=== PATIENT | male | born 1990 | race Caucasian/White ===

== ENCOUNTER 2022-02-25 17:10 | Emergency (ER) | payer OTHER ==
[~2022-02-25] VITALS: Ht 170.2 cm; Wt 84.0 kg
[2022-02-25] MEDS ORDERED: ACETAMINOPHEN 325MG TABLET PO STA (18:17)
[2022-02-25] MEDS ORDERED: ASPIRIN 81MG TABLET PO ONE (18:30)
[2022-02-25 18:39] LABS: BASOPHILS % 0.5 % (0.0-2.0); EOSINOPHILS % 1.8 % (0.0-5.0); HEMATOCRIT. 47.5 % (42.0-52.0); HEMOGLOBIN. 16.2 g/dL (14.0-18.0); LYMPHOCYTES % 23.5 % (20.0-50.0); MEAN CORPUSCULAR HEMOGLOBIN 31.1 pg (28.0-32.0); MEAN CORPUSCULAR VOLUME 91.1 fL (80.0-94.0); MEAN PLATELET VOLUME 10.3 fl (7.4-10.4); MONOCYTES % 6.3 % (2.0-8.0); NEUTROPHILS % 67.9 % (40.0-76.0); PLATELET 200 x1000/uL (130-400); RED BLOOD CELL COUNT 5.21 mill/uL (4.7-6.1); RED CELL DISTRIBUTION WIDTH 12.7 % (11.6-14.6)
[2022-02-25 18:50] LABS: CHLORIDE 100 mEq/L (98-107)
[2022-02-25 19:21] VITALS: BP 143/73
[2022-02-25] MEDS ORDERED: METH-653 MT (22:13)
[2022-02-25] MEDS ORDERED: METHOCARBAMOL 750MG TABLET PO SCH (22:30)
== END 2022-02-25 22:43 | disposition home or self-care (01) ==
LOC: ER 17:22
DX: R07.9 Chest pain, unspecified (principal)
CPT/HCPCS: 36415; 71045; 80053; 84484; 85025; 93005; 99285; Z7610

== ENCOUNTER 2023-01-23 14:09 | Emergency (ER) | payer BC, OTHER ==
[~2023-01-23] VITALS: Ht 172.7 cm; Wt 81.0 kg
[~2023-01-23 14:09] MED LIST: METH-653 MT
[2023-01-23 14:12] VITALS: TEMP 98.5; O2SAT 100
[2023-01-23 15:19] LABS: BASOPHILS % 0.5 % (0.0-2.0); CHLORIDE 109 mEq/L (98-107); EOSINOPHILS % 1.8 % (0.0-5.0); HEMATOCRIT. 46.4 % (42.0-52.0); HEMOGLOBIN. 16.2 g/dL (14.0-18.0); INDEX HEMOLYSI 1 (1-3); INDEX ICTERIC 1 (1-4); INDEX LIPEMIC 1 (1-3); LYMPHOCYTES % 24.4 % (20.0-50.0); MEAN CORPUSCULAR HEMOGLOBIN 31.7 pg (28.0-32.0); MEAN CORPUSCULAR HGB CONC 34.9 g/dL (31.0-37.0); MEAN CORPUSCULAR VOLUME 90.6 fL (80.0-94.0); MEAN PLATELET VOLUME 9.9 fl (7.4-10.4); MONOCYTES % 7.7 % (2.0-8.0); NEUTROPHILS % 65.6 % (40.0-76.0); PLATELET 219 x1000/uL (130-400); RED BLOOD CELL COUNT 5.12 mill/uL (4.7-6.1); RED CELL DISTRIBUTION WIDTH 13.1 % (11.6-14.6); SODIUM 139 mEq/L (136-145)
[2023-01-23 15:28] LABS: ALANINE AMINOTRANSFERASE 78 IU/L (13-61); ALBUMIN 4.1 g/dL (3.4-5.0); ASPARTATE AMINOTRANSFERASE 40 IU/L (15-37); BILIRUBIN TOTAL 0.4 mg/dL (0.1-1.0); CALCIUM 8.3 mg/dL (8.5-10.1); CARBON DIOXIDE 27 mEq/L (21-32); CREATININE 0.9 mg/dL (0.6-1.3); GLUCOSE 113 mg/dL (70-105); PROTEIN TOTAL 7.9 g/dL (6.0-8.3); TROPONIN I HIGH SENSITIVITY 5 ng/L (<78); UREA NITROGEN BLOOD 10 mg/dL (7-21)
[2023-01-23 16:30] VITALS: BP 142/87
[2023-01-23 18:25] LABS: TROPONIN I HIGH SENSITIVITY 6 ng/L (<78)
[2023-01-23 18:33] VITALS: PULSE 92; RESP 16
== END 2023-01-23 19:51 | disposition home or self-care (01) ==
LOC: ER 14:37
DX: R07.89 Other chest pain (principal); R79.89 Other specified abnormal findings of blood chemistry; I10 Essential (primary) hypertension
CPT/HCPCS: 36415; 71045; 80053; 84484; 85025; 93005; 99285